=== PATIENT | female | born 1965 | race Two or more races ===

== ENCOUNTER 2020-09-10 14:51 | Emergency (ER) | payer MEDICAID ==
[~2020-09-10] VITALS: Ht 175.3 cm; Wt 77.0 kg
[2020-09-10] MEDS ORDERED: ACETAMINOPHEN 325 MG TABLET ONE (17:55)
[2020-09-10] MEDS ORDERED: ACETAMINOPHEN 325 MG TABLET PO ONE (18:00)
[2020-09-10 18:03] LABS: MICROSCOPIC AUTO
[2020-09-10 19:18] VITALS: BP 130/88
== END 2020-09-10 19:20 | disposition home or self-care (01) ==
LOC: MERGE 14:51 → ED 19:00
DX: N30.00 Acute cystitis without hematuria (principal); F17.200 Nicotine dependence, unspecified, uncomplicated
CPT/HCPCS: 36415; 81001; 86592; 86780; 87077; 87086; 87186; 99283; 99285

== ENCOUNTER 2020-09-13 15:26 | Emergency (ER) | payer MEDICAID ==
[~2020-09-13] VITALS: Ht 175.3 cm; Wt 78.0 kg
[2020-09-13] MEDS ORDERED: BICILLIN-LA 2,400,000 UNITS/4 ML IM ONE (16:30)
[2020-09-13 17:27] VITALS: BP 118/78
== END 2020-09-13 17:30 | disposition home or self-care (01) ==
LOC: ED 16:20
DX: A51.39 Other secondary syphilis of skin (principal)
CPT/HCPCS: 96372; 99283; J0561